=== PATIENT | male | born 1975 | race Caucasian/White ===

== ENCOUNTER 2019-07-18 03:25 | Emergency (ER) | payer OTHER, MEDICAID ==
--- NOTE | 2019-07-18 07:21 | RADIOLOGY REPORT (SQ) ---
EXAM: X-ray ankle three or more views CLINICAL DATA: 43-year-old male with left foot and ankle pain following skimming injury TECHNICAL DATA: Three x-ray views of the left ankle were performed on 07/18/2019 at 5:24 AM. COMPARISONS: None FINDINGS: There is no evidence of fracture or dislocation. There is no significant arthritis or degenerative change. No focal lytic or sclerotic bone lesions are seen. Bone mineralization is normal. There is a mild superficial soft issue injury along the posterior calcaneus. No definite radiopaque foreign body is identified. IMPRESSION: No evidence of acute osseous injury involving the left ankle. There is a mild superficial soft tissue injury along the posterior calcaneus.
[2019-07-18] MEDS ORDERED: HYDROCODONE/ACETAMINOPHEN 5-325 MG TABLET PO ONE (08:37)
[2019-07-18] MEDS ORDERED: DIPH/PERTUSS(ACELL)/TETANUS VAC/PF 0.5 ML SYR (>=10YO) IM ONE (08:39)
[2019-07-18] MEDS ORDERED: LIDOCAINE 1% INJ-PF (10 MG/ML) 30 ML SDV INJ ONE (08:39)
--- NOTE | 2019-07-18 08:40 | ER Document Report ---
HPI - HPI Patient complains to provider of: foot lac Time Seen by Provider: 07/18/19 08:27 Onset: This morning Onset/Duration: Sudden Quality of pain: Achy Pain Level: 3 Context: Patient states that he slipped and fell on a popup stool hitting his left foot. Patient with laceration to left heel. Associated Symptoms: Other - Left foot laceration Exacerbated by: Walking Relieved by: Denies Similar symptoms previously: No Recently seen / treated by doctor: No - ROS ROS below otherwise negative: Yes Systems Reviewed and Negative: Yes All other systems reviewed and negative - GASTROINTESTINAL Gastrointestinal: DENIES: Nausea, Patient vomiting - MUSCULOSKELETAL Musculoskeletal: REPORTS: Extremity pain - DERM Skin Color: Normal Skin Problems: Laceration Past Medical History - General Information source: Patient - Social History Smoking Status: Former Smoker Frequency of alcohol use: None Drug Abuse: None Occupation: none Family History: Reviewed & Not Pertinent Patient has suicidal ideation: No Patient has homicidal ideation: No - Medical History Medical History: Other - Narcolepsy, cataplexy - Past Medical History Cardiac Medical History: Reports: Hx Hypercholesterolemia, Hx Hypertension Musculoskeletal Medical History: Reports Hx Arthritis Surgical Hx: Negative Vertical Provider Document - CONSTITUTIONAL Agree With Documented VS: Yes Exam Limitations: No Limitations General Appearance: WD/WN, No Apparent Distress - HEENT HEENT: Atraumatic, Normocephalic - NECK Neck: Normal Inspection - RESPIRATORY Respiratory: No Respiratory Distress - CARDIOVASCULAR Pulses: Normal: Dorsalis pedis - MUSCULOSKELETAL/EXTREMETIES Musculoskeletal/Extremeties: MAEW, FROM - NEURO Level of Consciousness: Awake, Alert, Appropriate Motor/Sensory: No Motor Deficit - DERM Integumentary: Warm, Dry, Laceration - 8 cm flap laceration to the posterior aspect of the left heel Course - Vital Signs Vital signs: Temp Pulse Resp BP Pulse Ox 98.1 F 90 120/71 95 07/18/19 03:36 07/18/19 03:36 07/18/19 03:36 07/18/19 03:36 - Diagnostic Test Radiology reviewed: Reports reviewed Procedures - Laceration/Wound Repair Left Foot Wound length (cm): 8 Wound's Depth, Shape: Irregular, Flap Laceration pre-procedure: Shur-Clens applied Anesthetic type: 1% Lidocaine Volume Anesthetic (mLs): 4 Wound Repaired With: Sutures Suture Size/Type: 4:0, Nylon Number of Sutures: 7 Layer Closure?: No Post-procedure wound care: Sterile dressing applied Post-procedure NV exam normal: No Complications: No Notes: 07/18/19 11:56 posterior/plantar surface of left heel Discharge - Discharge Clinical Impression: Foot laceration Qualifiers: Encounter type: initial encounter Laterality: left Qualified Code(s): S91.312A - Laceration without foreign body, left foot, initial encounter Condition: Stable Disposition: HOME, SELF-CARE Instructions: Cephalexin (OM), Dressing Instructions for Open Wounds (OM), Laceration Care (OM), Tetanus Immunization Given (OM) Additional Instructions: Return immediately for any new or worsening symptoms Followup with your primary care provider, call tomorrow to make a followup appointment Suture removal in 14 days Prescriptions: Cephalexin Monohydrate [Keflex 500 mg Capsule] 500 mg PO Q6H 5 Days capsule Referrals: DONOVAN ACOSTA PA-C [Primary Care Provider] - Follow up as needed
[2019-07-18] MEDS ORDERED: CEPHALEXIN 500 MG CAPSULE PO ONE (11:54)
[2019-07-18 12:14] VITALS: BP 135/79
== END 2019-07-18 12:12 | disposition home or self-care (01) ==
LOC: ER 03:25
DX: S91.312A Laceration without foreign body, left foot, initial encounter (principal); W01.190A Fall on same level from slipping, tripping and stumbling with subsequent striking against furniture, initial encounter; I10 Essential (primary) hypertension; Z87.891 Personal history of nicotine dependence
CPT/HCPCS: 99283; 90471; 73610; 90715; 12004; J3490